=== PATIENT | male | born 1980 | race Two or more races ===

== ENCOUNTER 2019-01-28 05:26 | Day surgery (SDC) | payer OTHER ==
[~2019-01-28 05:26] MED LIST: ATIVAN2 M1 PO; HYDRODIURIL12.5 MG PO; LISINOPRIL10 MG PO; PRISTIQ ER50 MG PO; SEROQUEL300 MG PO
[2019-01-28] MEDS ORDERED: PERCOCET 5-3251 EACH PO (08:31)
[2019-01-28] MEDS ORDERED: KETO10TA2 PO (08:31)
== END 2019-01-28 13:00 | disposition home or self-care (01) ==
LOC: CIR.AMB 05:26
DX: K60.5 Anorectal fistula (principal)